=== PATIENT | male | born 1970 | race Caucasian/White ===

== ENCOUNTER 2022-05-03 15:33 | Outpatient (CLI) | payer OTHER, SELFPAY ==
[2022-05-03 20:22] LABS: SARS PCR* Negative SARS-CoV-2 (Negative)
== END 2022-05-03 15:34 | disposition home or self-care (01) ==
PROVIDERS: PCP Family Medicine; Visit Provider Family Medicine
DX: Z20.822 Contact with and (suspected) exposure to COVID-19 (principal); R05.9 Cough, unspecified
CPT/HCPCS: 87635

== ENCOUNTER 2023-11-25 14:32 | Outpatient (CLI) | payer OTHER, SELFPAY | END 2023-11-25 14:33 | disposition home or self-care (01) | PROVIDERS: PCP Family Medicine; Visit Provider Family Medicine | DX: I10 Essential (primary) hypertension (principal); D75.1 Secondary polycythemia; K76.0 Fatty (change of) liver, not elsewhere classified; Z13.6 Encounter for screening for cardiovascular disorders; Z12.5 Encounter for screening for malignant neoplasm of prostate; Z13.29 Encounter for screening for other suspected endocrine disorder | CPT/HCPCS: 80053; 80061; 84443; G0103 ==

== ENCOUNTER 2024-08-16 17:14 | Outpatient (CLI) | payer OTHER, SELFPAY ==
--- NOTE | 2024-08-16 | MR_ITS ---
EXAM: MRI of the LEFT KNEE, without contrast CLINICAL INFORMATION: Male, 54 years old, with left knee pain after a fall. INDICATION: Evaluate for fibular head fracture. PRIOR SURGERY: None reported. PLAIN FILMS: Knee radiograph dated 08/05/2024. COMPARISONS: No prior MRIs available. TECHNICAL INFORMATION: Using a 1.5T MR scanner and a localizing surface coil: sagittals: PD, T2FS coronals: PD, T2, STIR axials: PD, T2FS SEDATION: None CONTRAST: None FINDINGS: Knee joint: Effusion: Moderate left knee effusion. Popliteal cyst: None. Loose bodies: None. Subcutaneous and extra-articular soft tissues: Moderate-marked subcutaneous soft tissue edema is present circumferentially throughout the knee (axial PDFS series 4 image 18). Ligaments: ACL: Abnormal signal, irregularity, and intermediate grade partial tearing is present at its femoral attachment (coronal STIR series 8 images 20-22 and axial T2FS series 4 images 10-12). PCL: Intact PCL, without acute or chronic injury. MCL: Intact MCL superficial and deep layers, without injury. LCL: Intact LCL, without injury. Posterolateral corner: No posterolateral corner soft tissue injury. Popliteus, biceps femoris, iliotibial band, popliteofibular ligament and lateral gastrocnemius are intact. Posteromedial corner: No posteromedial corner soft tissue injury. Semimembranosus, pes anserine tendons and posterior oblique ligament are without injury, tendinopathy or bursitis. Extensor mechanism: Patellar tendon: Intact, without tendinopathy. Quadriceps tendon: Intact, without tendinopathy. Retinacula: Medial and lateral retinacula are intact. Fat pads: Unremarkable infrapatellar Hoffa's, quadriceps and prefemoral fat pads. Medial compartment: Medial meniscus: No articular surface, meniscosynovial junction or root tear. No displacement, extrusion or parameniscal cyst. Medial femoral condyle: No chondromalacia or osteochondral abnormality. Medial tibial plateau: No chondromalacia or osteochondral abnormality. Lateral compartment: Lateral meniscus: No articular surface, meniscosynovial junction or root tear. No displacement, extrusion or parameniscal cyst. Lateral femoral condyle: No chondromalacia or osteochondral abnormality. Lateral tibial plateau: No chondromalacia or osteochondral abnormality. 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 Trochlea: Broad-based grade II chondromalacia of the medial facet and central sulcus with focal chondral fissuring and minimal edema. Proximal tibiofibular joint: Unremarkable, without evidence of ligament sprain injury, joint effusion or adjacent marrow edema. Bones: Comminuted fracture of the fibular head, with minimal displacement (sagittal PDFS series 6 and sagittal PD series 5 image 24; axial PD series 3 and axial T2FS series 4 image 30). Mild edema is present in the posterior aspect of the medial tibial plateau (sagittal T2FS series 6 image 11). IMPRESSION: 1. Acute, comminuted fracture of the fibular head, with minimal displacement. 2. Grade 2 sprain of the ACL with intermediate grade partial tearing at its femoral attachment and associated contusion of the posterior medial tibial plateau. 3. Moderate knee joint effusion. No popliteal (Trotter's) cyst. 4. Minimal osteoarthritis of the patellofemoral compartment. 5. No medial or lateral meniscal tear. 6. No PCL, tear, or LCL sprain/tear. 7. No osteochondral abnormality of the medial or lateral compartment. BC Electronically signed on 08/17/2024 7:30:00 AM by Chris Moffett M.D.
== END 2024-08-16 17:15 | disposition home or self-care (01) ==
PROVIDERS: PCP Family Medicine; Visit Provider Orthopaedic Surgery Sports Medicine
DX: M25.562 Pain in left knee (principal); S82.832A Other fracture of upper and lower end of left fibula, initial encounter for closed fracture; S83.512A Sprain of anterior cruciate ligament of left knee, initial encounter; M25.462 Effusion, left knee; M17.12 Unilateral primary osteoarthritis, left knee; M23.92 Unspecified internal derangement of left knee; E66.01 Morbid (severe) obesity due to excess calories; Z68.42 Body mass index [BMI] 45.0-49.9, adult
CPT/HCPCS: 73721

== ENCOUNTER 2024-10-25 10:30 | Outpatient (RCR) | payer OTHER, SELFPAY | END 2025-02-22 23:59 | disposition home or self-care (01) | PROVIDERS: PCP Family Medicine; Visit Provider Orthopaedic Surgery Sports Medicine | DX: S82.832D Other fracture of upper and lower end of left fibula, subsequent encounter for closed fracture with routine healing (principal); S83.512D Sprain of anterior cruciate ligament of left knee, subsequent encounter; M25.562 Pain in left knee; R60.0 Localized edema; Z51.89 Encounter for other specified aftercare | CPT/HCPCS: 97016; 97110; 97140; 97161 ==